=== PATIENT | male | born 1975 | race Caucasian/White ===

== ENCOUNTER 2018-05-31 16:32 | Outpatient (CLI) | payer MEDICARE, SELFPAY ==
[2018-05-31 18:21] LABS: ALT 46 U/L (12-78); AST 31 U/L (15-37); Alkaline Phosphatase 73 U/L (46-116); Anion Gap 10.3 mmol/L (3-11); BUN 23 mg/dL (7-18); Bilirubin, Total 0.5 mg/dL (0.2-1.0); CO2 26.7 mmol/L (21.0-32.0); CREATININE 1.07 mg/dL (0.70-1.30); Calcium 9.4 mg/dL (8.5-10.1); Chloride 102 mmol/L (98-107); Glucose 87 mg/dL (70-100); PHOSPHORUS 2.9 mg/dL (2.6-4.7); Potassium 4.2 mmol/L (3.5-5.1); Sodium 139 mmol/L (136-145); Total Protein 6.8 g/dL (6.4-8.2)
[2018-06-05 16:21] LABS: HIV-1 RNA Quantification Undetected copies/mL (UNDECT)
== END 2018-05-31 16:52 ==
PROVIDERS: PCP Internal Medicine Infectious Disease; Visit Provider Nurse Practitioner Family
DX: B20 Human immunodeficiency virus [HIV] disease (principal); Z79.899 Other long term (current) drug therapy
CPT/HCPCS: 36415; 80053; 87536; 84100

== ENCOUNTER 2018-06-05 12:00 | Outpatient (CLI) | payer MEDICARE, SELFPAY | END 2018-06-05 12:20 | PROVIDERS: PCP Internal Medicine Infectious Disease; Referring Provider Nurse Practitioner Family; Visit Provider Internal Medicine Infectious Disease | DX: B20 Human immunodeficiency virus [HIV] disease (principal); Z79.899 Other long term (current) drug therapy | CPT/HCPCS: 99215 ==

== ENCOUNTER 2018-09-25 19:28 | Emergency (ER) | payer MEDICARE, SELFPAY ==
[2018-09-25 19:34] VITALS: BP 137/79; PULSE 82; RESP 18; TEMP 37.4; O2SAT 95
--- NOTE | 2018-09-25 19:36 | DI.CT_ITS ---
SYMPTOMS/DIAGNOSIS: RIGHT LOWER QUADRANT PAIN, ? APPENDICITIS CT OF THE ABDOMEN AND PELVIS: Images were performed from the lung bases through the ischial tuberosities after IV and without oral contrast. The evaluation of the bowel is quite limited due to lack of intraabdominal fat and lack of oral contrast. The appendix appears normal. There is a moderate quantity of fecal material. Diverticulosis is seen in the sigmoid region. No definite evidence of diverticulitis. There are some mildly distended fluid-filled loops of bowel in the pelvis with a question of wall thickening, which could indicate enteritis. There is no free air or free fluid. The bladder and prostate are unremarkable. The lung bases are clear. The heart size is normal. The liver, gallbladder, spleen, pancreas, kidneys and adrenals are unremarkable. The aorta is normal in diameter. No bony abnormalities are seen. IMPRESSION: Limited exam. Mildly dilated small bowel could indicate enteritis.
--- NOTE | 2018-09-25 19:38 | W.ED.GENAD ---
Discharge Plan Disposition Patient Disposition: HOME Condition: Good Discharge Details Chief Complaint: Abd Prob Clinical Impression: Abdominal pain, Enteritis Primary Care Provider: Keyur Vincent ED Provider: Horace Peace Home Meds and New Rx's Prescriptions: No Action cyanocobalamin (vitamin B-12) [Vitamin B-12] 1,000 mcg Tablet 1,000 mcg PO DAILY RF: 0 steph extract 250 mg Capsule 250 mg PO DAILY RF: 0 cholecalciferol (vitamin D3) [Vitamin D3] 1,000 unit Tablet 2,000 unit PO DAILY RF: 0 multivit with min-folic acid 0.4 mg Tablet 1 tab PO DAILY RF: 0 Tivicay 50 mg Tablet 50 mg PO HS RF: 0 Descovy 200-25 mg Tablet 1 tab PO HS RF: 0 Ginseng Complex 150 mg-25 mg- 25 mg-15 mcg Capsule 2 cap PO DAILY RF: 0 turmeric 400 mg Capsule 1 tab PO DAILY RF: 0 Chaga Cordyceps drops 30 drp PO DAILY RF: 0 Lions Bashir drops 30 drp PO DAILY RF: 0 Discharge Instructions Instructions: Abdominal Pain (ED) Additional Instructions: Please take Tylenol and Motrin as needed for pain. Please drink plenty of water throughout the day to stay well-hydrated. Please pay close attention to your abdominal pain, if it continues, or worsens or you develop an associated fever, nausea, vomiting or diarrhea, please return immediately for reassessment. If you notice any worsening of your symptoms, or any new symptoms such as vomiting, diarrhea, fever, chills, shortness of breath, chest pain, numbness, weakness, or fainting , please return immediately to the emergency department for reevaluation. Please follow up with your primary care provider as soon as possible for reassessment and reevaluation. As always, it was a pleasure participating in your medical care today. Referrals: Keyur Vincent DO [Primary Care Provider] - Medical Decision Making This is a very pleasant 43-year-old male with a past medical history of being HIV positive, who presents today with right lower quadrant abdominal pain. Pain started earlier this morning, and is worsened throughout the day. He has not eaten anything since 10:30 AM. Symptoms are worse with heel strike, and palpation. He denies any urinary symptoms. Differential includes urolithiasis, UTI, or more likely appendicitis. We will get a CT scan for further evaluation out of the concern for appendicitis. 8:[address] scan results have returned there is no evidence of acute appendicitis, per the virtual radiology report pending's is normal in appearance. There is small amounts of minimal wall thickening for the small and large intestines, indicative of enteritis. No evidence of diverticulitis. On reevaluation and palpation of the patient's abdomen his pain has notably improved. Urinalysis is negative. White count is minimally elevated at 11.3, no bandemia, normal electrolytes and renal function. Lipase is normal. Had a long discussion with the patient and his family regarding observation, and the patient is feeling well, and feels good to go home. In addition to this, I do not think there is any indication for antibiotics at this time as the indurated seems to be generalized rather than focal to just a focal component of the colon. Weighing the risks and benefits, I do not think Cipro Flagyl would be appropriate for the patient at this time with his activity, and lifestyle. Although the CT scan is negative, and laboratory workup is benign I had a long discussion with the patient and family regarding red flags which to return, as appendicitis can sometimes present late. Patient and family members were at bedside are medically educated, and are aware of the reasons and physical exam findings for which to return. With reassuring vital signs, a benign appearing CT scan showing no evidence of acute surgical pathology, improving abdominal pain with Toradol, I feel he can be discharged home with very close follow-up. I have extensively reviewed the treatment plan and discharge instructions with the patient and their family. I have addressed all patient concerns at this time. The patient and family was made aware of what symptoms to monitor for that would warrant a return to the emergency department. Discussed the plan with the patient and family, they demonstrate verbal understanding and agreement with our assessment and plan at this time. FINDINGS: Lower thorax: No acute infiltrate in either lung base. ABDOMEN: Liver: Normal. No mass. Gallbladder and bile ducts: Normal. No calcified stones. No ductal dilation. Pancreas: Normal. No ductal dilation. Spleen: Normal. No splenomegaly. Adrenals: Normal. No mass. Kidneys and ureters: Normal. No hydronephrosis. Stomach and bowel: Moderate amount of stool in the majority of the colon. No generalized ileus or bowel obstruction. Multiple mildly distended, fluid-filled small bowel loops with minimal wall thickening within the lower pelvis suggesting an enteritis. Possible wall thickening of the mid / distal sigmoid colon as well as a portion of the proximal ascending colon which may indicate an associated colitis. Appendix: Normal appendix. PELVIS: Bladder: Normal unenhanced urinary bladder. No calcified stones within the bladder. Reproductive: Unremarkable as visualized. ABDOMEN and PELVIS: Intraperitoneal space: Normal. No free air. No significant fluid collection. Bones/joints: No acute fracture. No dislocation. Soft tissues: Unremarkable. Vasculature: Normal. No abdominal aortic aneurysm. Lymph nodes: Normal. No enlarged lymph nodes. IMPRESSION: 1. Normal appendix. 2. Moderate amount of stool in the majority of the colon. No generalized ileus or bowel obstruction. 3. Multiple mildly distended, fluid-filled small bowel loops with minimal wall thickening within the lower pelvis suggesting an enteritis. Possible wall thickening of the mid / distal sigmoid colon as well as a portion of the proximal ascending colon which may indicate an associated colitis. 4. Normal kidneys. Normal unenhanced urinary bladder. Thank you for allowing us to participate in the care of your patient. Dictated and Authenticated by: Anup Smith MD HPI General Date/Time Provider Initiated Documentation: 09/25/18 19:29. HPI Narrative: This is a 43-year-old male with a past medical history of being HIV positive, with undetectable viral loads for greater than 5 years, who presents today for evaluation of right lower quadrant abdominal pain. The patient states that earlier today he developed right lower quadrant abdominal pain. Throughout the day it is notably worsened. Whenever he jumped out of the car, or moved around he would feel it gets significantly worse. He has had nausea but no vomiting. He denies any diarrhea. Pain does not radiate anywhere else. It did start more so in the infraumbilical region, and now currently is from was located in the right lower quadrant. He denies any testicular pain, dysuria, hematuria, fever, chills, vomiting, diarrhea, chest pain or shortness of breath. He denies any previous abdominal surgeries. No other modifying factors. Last meal was at 10 AM. He denies any IV or illicit drug use, pertinent family history. Related Data Home Medications Medication Instructions Recorded Confirmed Chaga Cordyceps 30 drp PO DAILY 09/25/18 Lions Bashir 30 drp PO DAILY 09/25/18 Panjhoana, Tongan [id number] 2 cap PO DAILY 09/25/18 09/25/18 [Ginseng Complex] cholecalciferol (vitamin D3) 2,000 unit PO DAILY 09/25/18 09/25/18 [Vitamin D3] cyanocobalamin (vitamin B-12) 1,000 mcg PO DAILY 09/25/18 09/25/18 [Vitamin B-12] dolutegravir [Tivicay] 50 mg PO HS 09/25/18 09/25/18 emtricitabine-tenofovir alafen 1 tab PO HS 09/25/18 09/25/18 [Descovy] steph (Zingiber officinalis) 250 mg PO DAILY 09/25/18 09/25/18 [steph extract] multivit with min-folic acid 1 tab PO DAILY 09/25/18 09/25/18 turmeric 1 tab PO DAILY 09/25/18 09/25/18 Allergies Allergy/AdvReac Type Severity Reaction Status Date / Time gluten AdvReac Unverified 09/25/18 19:37 General Stated Complaint: Abd Prob JOSE MARTIN: 3 Review of Systems Review of Systems All systems reviewed & are unremarkable except as noted in HPI and below Exam Narrative Exam Narrative: 1.Const: Well-nourished, Well-developed, appearing stated age 2.Eyes: PERRL, no conjunctival injection, and symmetrical lids. 3.ENT: Atraumatic external nose and ears. Moist MM. Neck: Symmetric, trachea midline, No thyromegaly. 4.CVS: +S1/S2, No murmurs or gallops. Peripheral pulses 2+ and equal in all extremities. Brisk capillary refill in all extremities. 5.RESP: Unlabored respiratory effort. Clear to auscultation bilaterally. No wheezes rales or rhonchi 6.GI: Soft, bowel sounds present, tenderness notable in the right lower abdominal quadrant. Notable pain at McBurney's point, negative Farley sign. Negative obturator and psoas sign. Positive Rovsing sign. No significant flank or CVA tenderness. Positive heel strike test. 7.MSK: Normocephalic/Atraumatic, Extremities w/o deformity or ttp No cyanosis or clubbing, Normal movement of all extremities 8.Skin: Warm, Dry. No rashes or lesions. 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 Sensation grossly intact, no focal neurologic deficits. 10.Psych: (AAO) x3. Appropriate mood and affect Course Vital Signs Temperature 37.4 C 09/25/18 19:34 Pulse 82 09/25/18 19:34 Respiratory Rate 18 09/25/18 19:34 Blood Pressure 137/79 09/25/18 19:34 Pulse Oximetry 95 09/25/18 19:34 Temperature 37.4 C 09/25/18 19:34 Temperature Source Skin 09/25/18 19:34 Pulse 82 09/25/18 19:34 Respiratory Rate 18 09/25/18 19:34 Blood Pressure 137/79 09/25/18 19:34 Blood Pressure Position Sitting 09/25/18 19:34 Pulse Oximetry 95 09/25/18 19:34 Oxygen Delivery Method Room Air 09/25/18 19:34 Oxygen Flow Rate 0 09/25/18 19:34 Pain Level 3 09/25/18 19:34 Comment 09/25/18 19:34
[2018-09-25] MEDS: Ketorolac 30 MG/ML VIAL IVP (19:46)
[2018-09-25] MEDS: Normal Saline 1,000 ML 1000 ML IV (19:46)
[2018-09-25 19:47] VITALS: BP 140/82; RESP 18; O2SAT 96
[2018-09-25 19:49] LABS: Abs Immature Grans 0.03 k/cumm (0.0-0.09); Absolute Basophil Count 0.06 k/cumm (0.0-0.2); Absolute Eosinophil Count 0.14 k/cumm (0.0-0.7); Absolute Monocyte Count 0.92 k/cumm (0.11-0.7); Absolute Neutrophil Count 7.76 k/cumm (1.2-6.7); Basophils % 0.5; Eosinophils % 1.2; HCT 42.1 % (40.0-50.0); Immature Grans % 0.3; Lymphocytes % 21.2; Mean Corp. HGB Concentration 35.6 g/dL (32.0-36.0); Mean Corpuscular Hemoglobin 32.7 pg (27.0-33.0); Mean Corpuscular Volume 91.7 fL (80-95); Monocytes % 8.1; Neutrophils % 68.7; Platelet Count 244 x1000/uL (130-400); RBC 4.59 m/cumm (4.50-6.00); RBC Distribution Width 12.5 % (11.8-14.1)
[2018-09-25] MEDS: Omnipaque 350 MG/ML 100 ML BTL IJ (20:00)
[2018-09-25 20:14] LABS: ALT 64 U/L (12-78); AST 44 U/L (15-37); Albumin 4.2 g/dL (3.4-5.0); Alkaline Phosphatase 63 U/L (46-116); Anion Gap 10.1 mmol/L (3-11); BUN 11 mg/dL (7-18); Bilirubin, Total 0.6 mg/dL (0.2-1.0); CO2 26.9 mmol/L (21.0-32.0); CREATININE 0.85 mg/dL (0.70-1.30); Calcium 9.4 mg/dL (8.5-10.1); Chloride 100 mmol/L (98-107); Glucose 94 mg/dL (70-100); Lipase 107 U/L (73-393); Potassium 3.9 mmol/L (3.5-5.1); Sodium 137 mmol/L (136-145); Total Protein 7.5 g/dL (6.4-8.2)
[2018-09-25 20:24] LABS: Bilirubin Negative (Negative); Blood Negative (Negative); Clarity Clear; Glucose Negative (Negative); Ketones Negative (Negative); Leukocyte Esterase Negative (Negative); Nitrite Negative (Negative); Specific Gravity 1.015 (1.005-1.025); Urobilinogen 0.2 EU/dL (Up TO 0.2); pH 7.5 (5-8)
--- NOTE | 2018-09-25 20:25 | DI.VRAD_ITS ---
EXAM: CT Abdomen and Pelvis With Contrast EXAM DATE/TIME: 09/25/2018 7:38 PM CLINICAL HISTORY: 43 years old, male; Right lower quadrant (rlq) abd pain increasing throughout day. Denies any testicular pain, dysuria, hematuria, fever, chills, vomiting, diarrhea, chest pain, or shortness of breath. TECHNIQUE: Axial computed tomography images of the abdomen and pelvis with intravenous contrast. All CT scans at this facility use at least one of these dose optimization techniques: automated exposure control; mA and/or kV adjustment per patient size (includes targeted exams where dose is matched to clinical indication); or iterative reconstruction. Coronal and sagittal reformatted images were created and reviewed. CONTRAST: Contrast Material: 91 ml of Omnipaque 350; Contrast Route: IV RAC COMPARISON: No relevant prior studies available. FINDINGS: Lower thorax: No acute infiltrate in either lung base. ABDOMEN: Liver: Normal. No mass. Gallbladder and bile ducts: Normal. No calcified stones. No ductal dilation. Pancreas: Normal. No ductal dilation. Spleen: Normal. No splenomegaly. Adrenals: Normal. No mass. Kidneys and ureters: Normal. No hydronephrosis. Stomach and bowel: Moderate amount of stool in the majority of the colon. No generalized ileus or bowel obstruction. Multiple mildly distended, fluid-filled small bowel loops with minimal wall thickening within the lower pelvis suggesting an enteritis. Possible wall thickening of the mid / distal sigmoid colon as well as a portion of the proximal ascending colon which may indicate an associated colitis. Appendix: Normal appendix. PELVIS: Bladder: Normal unenhanced urinary bladder. No calcified stones within the bladder. Reproductive: Unremarkable as visualized. ABDOMEN and PELVIS: Intraperitoneal space: Normal. No free air. No significant fluid collection. Bones/joints: No acute fracture. No dislocation. Soft tissues: Unremarkable. Vasculature: Normal. No abdominal aortic aneurysm. Lymph nodes: Normal. No enlarged lymph nodes. IMPRESSION: 1. Normal appendix. 2. Moderate amount of stool in the majority of the colon. No generalized ileus or bowel obstruction. 3. Multiple mildly distended, fluid-filled small bowel loops with minimal wall thickening within the lower pelvis suggesting an enteritis. Possible wall thickening of the mid / distal sigmoid colon as well as a portion of the proximal ascending colon which may indicate an associated colitis. 4. Normal kidneys. Normal unenhanced urinary bladder. Dictated and Authenticated by: Anup Smith MD. Ordering:KENTON Vu MD
[2018-09-25 20:45] VITALS: BP 120/70; PULSE 67; RESP 16; TEMP 37; O2SAT 97
== END 2018-09-25 20:48 | disposition home or self-care (01) ==
PROVIDERS: Emergency Provider Student in an Organized Health Care Education/Training Program; PCP Internal Medicine Infectious Disease
DX: R10.31 Right lower quadrant pain (principal); K52.9 Noninfective gastroenteritis and colitis, unspecified; Z21 Asymptomatic human immunodeficiency virus [HIV] infection status
CPT/HCPCS: 36415; 80053; 83690; 96361; 96374; 99285; 74177; 81003; 85025; 99284; J1885; J3490

== ENCOUNTER 2018-12-06 16:37 | Outpatient (CLI) | payer MEDICARE, SELFPAY ==
[2018-12-06 17:18] LABS: Absolute Basophil Count 0.05 k/cumm (0.0-0.2); Absolute Eosinophil Count 0.11 k/cumm (0.0-0.7); Absolute Lymphocyte Count 2.13 k/cumm (1.2-3.4); Absolute Monocyte Count 0.42 k/cumm (0.11-0.7); Absolute Neutrophil Count 3.22 k/cumm (1.2-6.7); Basophils % 0.8; Eosinophils % 1.9; HCT 40.7 % (40.0-50.0); HGB 14.3 g/dL (13.5-17.5); Lymphocytes % 35.9; Mean Corp. HGB Concentration 35.1 g/dL (32.0-36.0); Mean Corpuscular Hemoglobin 32.6 pg (27.0-33.0); Mean Corpuscular Volume 92.9 fL (80-95); Mean Platelet Volume 9.1 fL (8.0-11.0); Monocytes % 7.1; Neutrophils % 54.3; Platelet Count 240 x1000/uL (130-400); RBC 4.38 m/cumm (4.50-6.00); RBC Distribution Width 12.7 % (11.8-14.1); White Blood Cell Count 5.93 k/cumm (4.4-10.8)
[2018-12-06 18:44] LABS: ALT 65 U/L (12-78); AST 43 U/L (15-37); Alkaline Phosphatase 53 U/L (46-116); Anion Gap 10.9 mmol/L (3-11); BUN 17 mg/dL (7-18); Bilirubin, Total 0.6 mg/dL (0.2-1.0); CO2 24.1 mmol/L (21.0-32.0); CREATININE 0.79 mg/dL (0.70-1.30); Chloride 103 mmol/L (98-107); Cholesterol 208 mg/dL (50-200); Glucose 87 mg/dL (70-100); HDL Cholesterol 56 mg/dL (40-60); LDL CHOLESTEROL 138 mg/dL (<100); Sodium 138 mmol/L (136-145); Total Protein 6.7 g/dL (6.4-8.2); Triglyceride 35 mg/dL (30-150)
[2018-12-08 10:35] LABS: CD3 85 % (62-87); CD4 34 % (35-63); CD8 50 % (10-35)
[2018-12-11 15:37] LABS: HIV-1 RNA Quantification Undetected copies/mL (UNDECT)
== END 2018-12-06 16:57 ==
PROVIDERS: PCP Internal Medicine Infectious Disease; Visit Provider Internal Medicine Infectious Disease
DX: B20 Human immunodeficiency virus [HIV] disease (principal); Z79.899 Other long term (current) drug therapy
CPT/HCPCS: 36415; 80053; 80061; 83721; 87536; 85025; 86359; 86360

== ENCOUNTER 2018-12-11 13:27 | Outpatient (CLI) | payer MEDICARE, SELFPAY | END 2018-12-11 13:47 | PROVIDERS: PCP Internal Medicine Infectious Disease; Referring Provider Nurse Practitioner Family; Visit Provider Internal Medicine Infectious Disease | DX: B20 Human immunodeficiency virus [HIV] disease (principal); Z23 Encounter for immunization; Z79.899 Other long term (current) drug therapy | CPT/HCPCS: 90471; 90734; 99215 ==

== ENCOUNTER 2018-12-11 16:22 | Outpatient (REF) | payer MEDICARE, SELFPAY ==
--- NOTE | 2018-12-11 13:30 | PAPFT_PTH ---
PATIENT: Dante Armstrong LOC: [facility] U#:[id number] AGE/SX: 43/M ROOM: RE12/11/[address]: Geno Zhu : 1975 BED: DIS: 12/11/2018 SPEC #: [id number] RECD: 12/12/18 12:57 STATUS: JACQUELINE REQ #: [id number] RUFUS: 12/11/18 13:[address]: Keyur Vincent DEPT: [facility] Cytology RECD BY: Ada Chatman Tissues: 1 - CX/ENDOCX FOR PAP SMEARS Procedures: PAP THIN PREP/UVM Screening Comments: [id number]
== END 2018-12-11 16:42 ==
LOC: LBN 16:22
PROVIDERS: PCP Nurse Practitioner Family; Visit Provider Nurse Practitioner Family
DX: B20 Human immunodeficiency virus [HIV] disease (principal); Z79.899 Other long term (current) drug therapy; Z87.898 Personal history of other specified conditions
CPT/HCPCS: 88142

== ENCOUNTER 2019-06-13 16:48 | Outpatient (CLI) | payer MEDICARE, SELFPAY ==
[2019-06-13 17:36] LABS: Abs Immature Grans 0.01 k/cumm (0.0-0.09); Absolute Basophil Count 0.07 k/cumm (0.0-0.2); Absolute Eosinophil Count 0.11 k/cumm (0.0-0.7); Absolute Monocyte Count 0.47 k/cumm (0.11-0.7); Absolute Neutrophil Count 2.87 k/cumm (1.2-6.7); Basophils % 1.2; Eosinophils % 1.9; HCT 45.7 % (40.0-50.0); HGB 16.1 g/dL (13.5-17.5); Immature Grans % 0.2; Lymphocytes % 40.5; Mean Corp. HGB Concentration 35.2 g/dL (32.0-36.0); Mean Corpuscular Hemoglobin 32.4 pg (27.0-33.0); Mean Platelet Volume 8.7 fL (8.0-11.0); Monocytes % 7.9; Neutrophils % 48.3; Platelet Count 258 x1000/uL (130-400); RBC 4.97 m/cumm (4.50-6.00); White Blood Cell Count 5.93 k/cumm (4.4-10.8)
[2019-06-13 18:21] LABS: ALT 68 U/L (16-63); AST 42 U/L (15-37); Albumin 4.2 g/dL (3.4-5.0); Alkaline Phosphatase 54 U/L (46-116); Anion Gap 8.8 mmol/L (3-11); BUN 13 mg/dL (7-18); Bilirubin, Total 0.3 mg/dL (0.2-1.0); CO2 28.2 mmol/L (21.0-32.0); CREATININE 0.93 mg/dL (0.70-1.30); Calcium 9.3 mg/dL (8.5-10.1); Calculated LDL 128 mg/dL; Chloride 104 mmol/L (98-107); Cholesterol 192 mg/dL (<200); Glucose 75 mg/dL (74-106); HDL Cholesterol 53 mg/dL (40-60); Potassium 4.5 mmol/L (3.5-5.1); Sodium 141 mmol/L (136-145); Total Protein 7.2 g/dL (6.4-8.2); Triglyceride 58 mg/dL (<150)
[2019-06-16 16:26] LABS: CD3 85 % (62-87); CD4 35 % (35-63); CD8 49 % (10-35)
[2019-06-18 14:36] LABS: HIV-1 RNA Quantification 0 copies/mL (Undetected)
== END 2019-06-13 17:08 ==
PROVIDERS: PCP Nurse Practitioner Family; Visit Provider Internal Medicine Infectious Disease
DX: B20 Human immunodeficiency virus [HIV] disease (principal); Z79.899 Other long term (current) drug therapy
CPT/HCPCS: 36415; 80053; 80061; 87536; 85025; 86359; 86360

== ENCOUNTER 2019-06-18 15:40 | Outpatient (CLI) | payer MEDICARE, SELFPAY | END 2019-06-18 16:00 | PROVIDERS: PCP Nurse Practitioner Family; Referring Provider Nurse Practitioner Family; Visit Provider Internal Medicine Infectious Disease | DX: B20 Human immunodeficiency virus [HIV] disease (principal); Z79.899 Other long term (current) drug therapy | CPT/HCPCS: 99215 ==

== ENCOUNTER 2019-07-27 11:02 | Outpatient (CLI) | payer MEDICARE, SELFPAY ==
--- NOTE | 2019-07-27 11:04 | W.CCNOTE ---
Date of service: 07/27/19 Time of Service: 11:04 Comprehensive Care Clinic Note Note: [facility] [address] [place] [address] [facility] Follow Up Visit Name: Dante Armstrong Date of : 1975 Date of Service: 07/27/2019 SUBJECTIVE: ?I?ve been feeling good and didn?t have any side effects from the immunizations in May.? Had flu vaccine, 32 Menactra and a double dose Hepatitis B vaccine as he never mounted immunity w the regular 3 injection series. He has been well and is taking all the medications as RXd and has not missed a dose. ROS: Denies fever, chills, night sweats, or recent URI or GI symptoms. Weight and appetite is stable ? 10 point review negative. Has not had any rash Update Past Medical/Surgical/Psychiatric History: Nothing new. 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 He developed a severe pain in his left lower back that went into his leg but never saw a rash. He describes having shaking chills and when that would happen the pain intensified. He has had nothing like it since. He takes Lysine and since starting that has not had any Herpes 2 viral outbreaks. Allergies/Sensitivities: Bactrim causes thrombocytopenia and anemia ? perhaps stinson anemia. Current Medications: Descovey (emtricitabine-tenofovir alafen 200-25mg), Tivicay (dolutegravir 50mg), Multiple Supplements includin-hydroxytrytophan, acetylcystine, B-Complex, Calcium/D3/Mag/Zinc, Cod Liver Oil & fish oil, Lysine, Milk Thistle, Multivit, Ginseng, Tumeric. Social History: Lives in his own home with his dogs and has goats and chickens. 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 ppd ? contemplating quiting Update Family History: No new health issues in his family Immunization History: Tetanus (DPT/dT/dTp/TDAP) ? had in 2016 Flu Vaccine: gets yearly and had in 05/2019 Pneumovax: #1, #2; - Had both, Prevnar 13 #1 ? had in 2015 Other: Menactra #1- 11/2018, #2- 05/2019 OBJECTIVE Temp: 97.9, Pulse: 74, Resp: 14, BP: 122/70 General: AINAD, AAOx4, appearing well Skin: free of rash, W&D Eyes: non icteric Cardiac: RRR No MCRG Chest/Lungs: Clear Abdomen: NABS, NT, ND, no OGM Extremities: no edema Neuro: gait strong and steady, no tremor Psych: normal affect, euthymic mood Lab work on 06/13/2019 ? absolute CD4 843, CD4% 35, VL <20 (undetectable) ASSESSMENT: HIV+ stable on last lab work and taking the ART without missing doses or ASEs. No immunity to HBV w regular series of 3 inj of HBV vaccine - Immunizations today for #2 in high dose Hepatitis B vaccine PLAN: no change in medications. High dose Hepatitis B vaccine administered in the RG today. Call if develops fever, chills, pain /redness at the site or other mehran/skin lesions MD visit scheduled: will be due on Nov, 2019 Lab Work: to be done a few weeks before MD visit Provider of Care: Geno Zhu NP Signature: Date:
== END 2019-07-27 11:22 ==
PROVIDERS: PCP Nurse Practitioner Family; Visit Provider Nurse Practitioner Family
DX: B20 Human immunodeficiency virus [HIV] disease (principal); Z79.899 Other long term (current) drug therapy; Z23 Encounter for immunization
CPT/HCPCS: 90471; 99214; 90746

== ENCOUNTER 2019-11-07 15:58 | Outpatient (CLI) | payer MEDICARE, SELFPAY ==
--- NOTE | 2019-11-07 16:02 | CCCE_ITS ---
Date of service: 11/07/19 Time of Service: 16:03 [facility] Care Clinic Note Note: Phone tele-health contact with Arpan for a check in and follow up for his HIV disease. He states that he has not worked since 10/05/2019 and is awaiting an unemployment check but so far is ok for food and essentials. He is hoping to get some small building jobs after the Covid19 pandemic slows down. He states that he feels well now but in mid September he picked up two woman who were hitch-hicking on a cold day in [place]. He admits he did shake their hands after he dropped them off to where they were going but neither had any sign of illness. A few days later he developed a dry cough, aching and fatigue but no fever. After a few days all the symptoms began to resolve but he can't help but wonder if he had the Covid19. He asks if he will be able to have an antibody test when a reliable one is available. He has refills of his Tivicay 50mg tabs and Descovy 200-25 mg tabs until mid January. He will call if he has any trouble refilling these. There is not an anticipated shortage of these medications but he is to ask the pharmacist if they hear of any. He will let me know if this becomes an issue. I will check in with him in about a month and he is to call should he start with any S&S of illness in the mean time. Geno Zhu NP
== END 2019-11-07 16:18 ==
PROVIDERS: PCP Nurse Practitioner Family; Visit Provider Nurse Practitioner Family
DX: B20 Human immunodeficiency virus [HIV] disease (principal)
CPT/HCPCS: 99024; 99213

== ENCOUNTER 2021-04-27 11:30 | Outpatient (CLI) | payer MEDICARE, SELFPAY ==
--- NOTE | 2021-04-27 15:24 | CCCE_ITS ---
Date of service: 04/27/21 Time of Service: 11:30 Comprehensive Care Clinic Note Note: [facility] [address] [place] [address] [facility] Visit for Medical Follow Up Name: Dante Armstrong Medical Record [id number] Date of : 1975 Primary Care Provider: Geno Zhu Date of Service: 04/27/2021 SUBJECTIVE CC/HPI: Arpan is here for an influenza vaccine injection and a general check in. he had a Zoom follow up Tele-Health visit with Dr. Vincent although apparently the quality of the audio was poor due to the location where Arpan was parked in [place] in his truck during the internet connection. He says he is feeling well and has not had any febrile illnesses. He is not Covid vaccinated and is not planning to get the vaccine any time soon but is willing to have the influenza vaccine today and in 8 weeks come back for the second Pneumovax as his first and the only one on record was in 2013. He did not have the flu vaccine last year due to not wanting to go into any health care facilities while Covid was still on the increase from the summer of 2019. He did not mount an immune response to the initial 3 doses of Hep B vaccine and did have the high dose Hep B vaccine administered in May again w/o detectable immunity response and a second dose of double dose Hep B vaccine in July of 2019 but has not had any blood work done since that time due to Covid! ROS Constitutional: Good energy, appetite, sleep. Weight is stable. Skin: Denies rash Ear/Nose/Throat: Negative CV: Denies chest pain, pressure, palpitations Respiratory: Some smokers cough in the morning, denies dyspnea, hemoptysis GI: No N/V/D/C or rectal bleeding : Negative Lymphatic: Has not noted any enlarged nodes Hematologic: No unusual bleeding, bruising Psychiatric: Denies Anxiety, Depression, SI/HI Allergies/Sensitivities: NKDA Current Medications: Tivicay 50mg a day Descovy 200-25 mgs one a day Multiple supplements Medical / Surgical History Update: Had an evaluation earlier in the year for abdominal pain that he thought was appendicitis but it turned out to be non- surgical Psychiatric History Update: Non sig Social History Update: Working doing carpentry work and self-employed. Health Insurance: Medicare, No longer has Medicaid due to his being able to work some now that he is on a more modern regimen of HIV medications and having no side effects Substance Use: Tobacco: about 1 ppd ETOH: rare Drug Use: MJ sometimes Family History Update: Nothing new Immunization Needed? Due for Influenza today and Pneumovax in 8 weeks Health Maintenance: UTD with other vaccines but refusing the Covid vaccine OBJECTIVE Height: Weight: 144# Temp: 96.7, Pulse: 72, Respirations: 14, Blood Pressure: 110/74 General: AINAD, Gait strong and steady Skin: W/D no rash Eyes: non-icteric Psychiatric: - eye contact: good - speech: normal - affect: appropriate - mood: euthymic - memory: short term intact, intermediate manager intact ASSESSMENT/PLAN HIV/HM: To get blood work today for recheck of CBCD, CMP, CD4, VL, HBV sAb since these were last done 2 years ago due to Covid deterring him from going to the lab. He has an appointment at the [facility] lab today at 2:30pm and will keep this appointment. No change in his medications at this time. He received the influenza vaccine today and it was entered into the [facility] Immunization Registry. MD visit scheduled: 6 months and it may be better for him to come into clinic here to have the appointment. Lab work ordered: As outlined above under A/P Provider of Care: Geno Zhu, MSN, EMERGENCY VETERINARIAN
== END 2021-04-27 11:31 | disposition home or self-care (01) ==
LOC: CCC 15:23
PROVIDERS: PCP Nurse Practitioner Family; Visit Provider Nurse Practitioner Family
DX: B20 Human immunodeficiency virus [HIV] disease (principal); Z79.899 Other long term (current) drug therapy
CPT/HCPCS: 36415; 80053; 86706; 87536; 99213; 85025; 86359; 86360

== ENCOUNTER 2021-04-27 17:47 | Outpatient (CLI) | payer MEDICARE, SELFPAY ==
[2021-04-27 15:15] LABS: Abs Immature Grans 0.02 10^3/uL (0.0-0.06); Absolute Basophil Count 0.09 10^3/uL (0.0-0.2); Absolute Eosinophil Count 0.21 10^3/uL (0.0-0.7); Absolute Lymphocyte Count 2.41 10^3/uL (1.2-3.4); Absolute Monocyte Count 0.58 10^3/uL (0.1-0.8); Eosinophils % 2.3; HCT 42.8 % (40.0-50.0); HGB 14.7 g/dL (13.5-17.5); Immature Grans % 0.2; Lymphocytes % 26.7; MCH 32.5 pg (27.0-33.0); MCHC 34.3 % (32.0-36.0); MCV 94.5 fL (80-95); MPV 9.2 fL (8.0-11.0); Monocytes % 6.4; Neutrophils % 63.4; Nucleated RBC 0 %; Platelet Count 252 10^3/uL (130-400); RBC 4.53 10^6/uL (4.36-5.78); RDW-SD 42.2 fL; WBC 9.01 10^3/uL (4.4-10.8)
[2021-04-27 16:13] LABS: ALT 44 U/L (16-63); AST 32 U/L (15-37); Albumin 3.8 g/dL (3.4-5.0); Alkaline Phosphatase 53 U/L (46-116); Anion Gap 8.8 mmol/L (3-11); BUN 18 mg/dL (7-18); Bilirubin, Total 0.4 mg/dL (0.2-1.0); CO2 28.2 mmol/L (21.0-32.0); Chloride 105 mmol/L (98-107); Glucose 88 mg/dL (74-106); Potassium 4.7 mmol/L (3.5-5.1); Sodium 142 mmol/L (136-145); Total Protein 6.6 g/dL (6.4-8.2)
[2021-04-29 10:17] LABS: HBs Antibody, Quant 3.8 mIU/mL (See Note); Hepatitis B Surface Ab Negative (See Note)
[2021-04-29 14:16] LABS: 4/8 Ratio 0.63 (>=0.90); Absolute CD3 2023 Cells/uL (840-2,669); Absolute CD8 1225 Cells/uL (154-1,097); CD3 82 % (56-84); CD4 31 % (31-64); CD8 50 % (9-39)
[2021-04-30 15:43] LABS: HIV 1 RNA Qualitative Undetected copies/mL (Undetected)
== END 2021-04-27 17:48 | disposition home or self-care (01) ==
LOC: LBO 17:51
PROVIDERS: PCP Nurse Practitioner Family; Visit Provider Nurse Practitioner Family
DX: B20 Human immunodeficiency virus [HIV] disease (principal); Z79.899 Other long term (current) drug therapy
CPT/HCPCS: 36415; 80053; 86706; 87536; 85025; 86359; 86360

== ENCOUNTER 2022-06-15 03:12 | Outpatient (CLI) | payer SELFPAY ==
[2022-06-15 13:45] LABS: Abs Immature Grans 0.01 10^3/uL (0.0-0.06); Absolute Basophil Count 0.06 10^3/uL (0.0-0.2); Absolute Eosinophil Count 0.16 10^3/uL (0.0-0.7); Absolute Lymphocyte Count 2.01 10^3/uL (1.2-3.4); Absolute Monocyte Count 0.42 10^3/uL (0.1-0.8); Absolute Neutrophil Count 4.91 10^3/uL (1.2-6.7); Basophils % 0.8; Eosinophils % 2.1; HCT 42.5 % (40.0-50.0); HGB 14.9 g/dL (13.5-17.5); Immature Grans % 0.1; Lymphocytes % 26.6; MCH 32.7 pg (27.0-33.0); MCHC 35.1 % (32.0-36.0); MCV 93 fL (80-95); MPV 8.6 fL (8.0-11.0); Monocytes % 5.5; Neutrophils % 64.9; Platelet Count 258 10^3/uL (130-400); RBC 4.56 10^6/uL (4.36-5.78); RDW 11.9 % (11.8-14.1); RDW-SD 41.4 fL; WBC 7.57 10^3/uL (4.4-10.8)
[2022-06-15 14:11] LABS: ALT 51 U/L (16-63); AST 42 U/L (15-37); Albumin 3.9 g/dL (3.4-5.0); Alkaline Phosphatase 57 U/L (46-116); Anion Gap 8.9 mmol/L (3-11); BUN 18 mg/dL (7-18); Bilirubin, Total 0.6 mg/dL (0.2-1.0); CO2 26.1 mmol/L (21.0-32.0); CREATININE 1.2 mg/dL (0.70-1.30); Calcium 9.5 mg/dL (8.5-10.1); Chloride 101 mmol/L (98-107); Estimated GFR 75.06 (mL/min/1.73m2); Glucose 104 mg/dL (74-106); Potassium 4.2 mmol/L (3.5-5.1); Sodium 136 mmol/L (136-145); Total Protein 7.1 g/dL (6.4-8.2)
[2022-06-21 09:28] LABS: Absolute CD3 1844 Cells/uL (840-2669); Absolute CD8 1128 Cells/uL (154-1097); CD3 83 % (56-84); CD4 30 % (31-64); CD8 51 % (9-39)
== END 2022-06-15 03:13 | disposition home or self-care (01) ==
LOC: LBO 03:13
PROVIDERS: PCP Nurse Practitioner Family; Visit Provider Internal Medicine Infectious Disease
DX: B20 Human immunodeficiency virus [HIV] disease (principal); Z79.899 Other long term (current) drug therapy
CPT/HCPCS: 36415; 80053; 86701; 86702; 87389; 85025; 86359; 86360

== ENCOUNTER 2022-11-26 01:35 | Outpatient (CLI) | payer SELFPAY ==
[2022-11-29 12:27] LABS: HIV 1 RNA Qualitative Undetected copies/mL (Undetected)
== END 2022-11-26 01:36 | disposition home or self-care (01) ==
LOC: LBO 01:35
PROVIDERS: PCP Nurse Practitioner Family; Visit Provider Internal Medicine Infectious Disease
DX: B20 Human immunodeficiency virus [HIV] disease (principal); Z79.899 Other long term (current) drug therapy
CPT/HCPCS: 87536

== ENCOUNTER 2025-05-19 16:07 | Emergency (ER) | payer SELFPAY ==
[2025-05-19] VITALS (8 sets, daily range): BP systolic 138; BP diastolic 86; PULSE 69–81; RESP 20; TEMP 36.3; O2SAT 88–100
--- NOTE | 2025-05-19 16:15 | RT.EKG_ITS ---
APPROVED REPORT Exam: Resting ECG Reason for Exam: SOB Patient Location: E HR:76 bpm ECG Measurements Heart Rate 76 AXIS IN 126 P 81 QRSd 85 QRS 67 QT 385 T 77 QTc 433 Conclusion Sinus rhythm, rate 76 No interval abnormalities No STEMI No priors available for comparison
--- NOTE | 2025-05-19 16:30 | DI.RAD_ITS ---
Exam(s) XR CHEST 2V PA LATERAL EXAM: XR CHEST 2V PA LATERAL CLINICAL HISTORY: SOB TECHNIQUE: 2D digital imaging was performed of the chest. Two images were obtained. PA and lateral views were obtained. COMPARISON: No exams were available for comparison FINDINGS: MEDIASTINUM: Normal. HEART: Normal. PULMONARY VASCULATURE: Normal. LUNGS: The lungs are hyperinflated. There are no focal consolidating infiltrates. PLEURAL SPACE: No pleural effusion or pneumothorax. BONE:Within normal limits for the patient's age. OTHER FINDINGS:Normal. IMPRESSION: 1. Inflation of the lungs which can be seen with COPD or reactive airways disease. 2. There are no focal consolidating infiltrates. 3. The preliminary [facility] report was reviewed. DATA REPOSITORY: RADIATION DOSE DELIVERED:
[2025-05-19 17:07] LABS: BE (Venous) 4 mmol/L (-2-3); HCO3 (Venous) 29 mmol/L (23-28); O2 Sat (Venous) 66 %; TCO2 (Venous) 26 mmol/L (24-29); pCO2 (Venous) 49 mmHg (41-51); pO2 (Venous) 34 mmHg
[2025-05-19 17:08] LABS: Abs Immature Grans 0.02 10^3/uL (0.0-0.06); HCT 45.0 % (40.0-50.0); HGB 15.8 g/dL (13.5-17.5); Immature Grans % 0.3 %; MCH 32.1 pg (27.0-33.0); MCHC 35.1 % (32.0-36.0); MCV 92 fL (80-95); MPV 8.4 fL (8.0-11.0); Platelet Count 235 10^3/uL (130-400); RBC 4.92 10^6/uL (4.36-5.78); RDW 11.6 % (11.8-14.1); RDW-SD 39.1 fL; WBC 6.84 10^3/uL (4.4-10.8)
[2025-05-19] MEDS: methylPREDNISolone SUCC 125 MG VIAL IVP (17:17)
[2025-05-19] MEDS: Albuterol/Ipratropium 3 ML UPD VIAL UPD ×2 (17:17→17:55)
--- NOTE | 2025-05-19 17:21 | DI.VRAD_ITS ---
PROCEDURE INFORMATION: Exam: XR Chest Exam date and time: 05/19/2025 5:11 PM Age: 49 years old Clinical indication: Shortness of breath TECHNIQUE: Imaging protocol: Radiologic exam of the chest. Views: 2 views. COMPARISON: CT ABDOMEN PELVIS W 09/25/2018 7:50 PM FINDINGS: Lungs: The lungs are hyperaerated and hyperlucent. No acute infiltrates. Pleural spaces: Unremarkable. No pleural effusion. No pneumothorax. Heart/Mediastinum: Unremarkable. No cardiomegaly. Bones/joints: Unremarkable. IMPRESSION: Reactive airway disease versus COPD. Clinical correlation requested. Dictated and Authenticated by: Kay Eden MD. Orderin St. Richi Rojas MD
[2025-05-19 17:26] LABS: COVID-19 PCR Negative (Negative); RSV PCR Negative (Negative)
[2025-05-19 17:26] LABS: Glucose Negative (Negative)
[2025-05-19 17:32] LABS: ALT 46 U/L (16-63); AST 60 U/L (15-37); Albumin 3.8 g/dL (3.4-5.0); Alkaline Phosphatase 82 U/L (46-116); Anion Gap 6.8 mmol/L (3-11); BUN 8 mg/dL (7-18); Bilirubin, Total 0.5 mg/dL (0.2-1.0); CO2 30.2 mmol/L (21.0-32.0); Calcium 9.1 mg/dL (8.5-10.1); Chloride 99 mmol/L (98-107); Estimated GFR 107.82 (mL/min/1.73m2); Glucose 90 mg/dL (74-106); Magnesium 1.7 mg/dL (1.8-2.4); NT-proBNP 141 pg/mL (<300); Potassium 4.3 mmol/L (3.5-5.1); Sodium 136 mmol/L (136-145); Total Protein 7.4 g/dL (6.4-8.2); Troponin I 8 ng/L (<or=76)
--- NOTE | 2025-05-19 17:40 | W.ED.GENAD ---
Discharge Plan Disposition Patient Disposition: Home Condition: Stable Discharge Details Clinical Impression: COPD exacerbation, Acute bronchitis Primary Care Provider: Geno Zhu ED Provider: Crystal Musa Home Meds and New Rx's Prescriptions: New azithromycin 250 mg tablet 250 mg PO DAILY 4 Days Qty: 4 0RF Rx Instructions: start on day 2 of therapy (05/20/2025) prednisone 20 mg tablet 40 mg PO DAILY 4 Days Qty: 8 0RF Rx Instructions: Start taking 05/20/2025 No Action cyanocobalamin (vitamin B-12) [Vitamin B-12] 1,000 mcg Tablet 1,000 mcg PO DAILY steph extract 250 mg Capsule 250 mg PO DAILY cholecalciferol (vitamin D3) [Vitamin D3] 1,000 unit Tablet 2,000 unit PO DAILY multivit with min-folic acid 0.4 mg Tablet 1 tab PO DAILY Tivicay 50 mg Tablet 50 mg PO HS Descovy 200-25 mg Tablet 1 tab PO HS turmeric 400 mg Capsule 1 tab PO DAILY Chaga Cordyceps drops 30 drp PO DAILY Lions Bashir drops 30 drp PO DAILY Discharge Instructions Instructions: COPD Exacerbation, Adult ED Additional Instructions: You were seen in the emergency department today for evaluation of shortness of breath, cough, and sputum production. In our department you had a full physical examination performed, received medications for your wheezing including a breathing treatment, steroid, and your first dose of antibiotics. Your chest x-ray did not show any sign of pneumonia but I am concerned for a COPD exacerbation and bronchitis. I sent a prescription for the remainder of your course of steroids and antibiotics to your pharmacy. Your magnesium was very slightly low and this was repleted in the emergency department. I have sent you home with an inhaler, which you should use as needed every 4 hours for shortness of breath. I have referred you to establish with a primary care physician to discuss this visit and any symptoms that change, worsen, or persist. Please follow-up with your primary care provider in the next few days to discuss this visit and any symptoms that change, worsen, or persist. Thank you for allowing us to be part of your care. HPI General Mode of arrival: ambulatory. Date/Time Provider Initiated Documentation: 05/19/25 16:32. Limitations to Documentation: no limitations. Information obtained by: patient and old records reviewed. HPI Narrative: This is a 49-year-old male patient with a past medical history significant for HIV on antiretroviral therapy, presenting for evaluation of shortness of breath and cough. The patient reports that he started to have worsening breathing 3 nights ago, initially had a dry cough but then had a night where he did experience fever and cough productive of white sputum. He reports that his breathing is significantly worsened today, he feels like he has to lean forward to get air, and was noted to be mildly hypoxic in the triage box at 88%. The patient reports that he does smoke cigarettes, has not been formally diagnosed with any reactive airway disease such as COPD, but reports that he does not regularly go to a physician. He denies chest pain, states that he does not have any history of heart problems and has not noted any calf swelling or tenderness. Has had some recent sick contacts, has not gotten any COVID or flu vaccines yet this year. Related Data Home Medications ?Medication ?Instructions ?Recorded ?Confirmed Chaga Cordyceps 30 drp PO DAILY 09/25/18 05/19/25 Lions Bashir 30 drp PO DAILY 09/25/18 05/19/25 cholecalciferol (vitamin D3) 25 2,000 unit PO DAILY 09/25/18 05/19/25 mcg (1,000 unit) tablet (Vitamin D3) cyanocobalamin (vitamin B-12) 1,000 mcg PO DAILY 09/25/18 05/19/25 1,000 mcg tablet (Vitamin B-12) dolutegravir 50 mg tablet (Tivicay) 50 mg PO HS 09/25/18 05/19/25 emtricitabine 200 mg-tenofovir 1 tab PO HS 09/25/18 05/19/25 alafenamide fumarate 25 mg tablet (Descovy) steph (Zingiber officinalis) 250 250 mg PO DAILY 09/25/18 05/19/25 mg capsule (steph extract) multivitamin with minerals-folic 1 tab PO DAILY 09/25/18 05/19/25 acid 0.4 mg tablet turmeric 400 mg capsule 1 tab PO DAILY 09/25/18 05/19/25 azithromycin 250 mg tablet 250 mg PO DAILY 4 days #4 tabs 05/19/25 prednisone 20 mg tablet 40 mg (2 x 20 mg) PO DAILY 4 days 05/19/25 #8 tabs Previous Rx's ?Medication ?Instructions ?Recorded azithromycin 250 mg tablet 250 mg PO DAILY 4 days #4 tabs 05/19/25 prednisone 20 mg tablet 40 mg (2 x 20 mg) PO DAILY 4 days 05/19/25 #8 tabs Allergies Allergy/AdvReac Type Severity Reaction Status Date / Time sulfamethoxazole (From Allergy Severe Thrombocytopenia, Verified 05/19/25 17:46 Bactrim) stinson anemia trimethoprim (From Bactrim) Allergy Severe Thrombocytopenia, Verified 05/19/25 17:46 stinson anemia gluten AdvReac Anaphylaxis Unverified 05/19/25 17:46 General Stated Complaint: SOB JOSE MARTIN: 3 Exam Narrative Exam Narrative: Gen: Awake and alert, in no apparent distress HEENT: Non-icteric sclera Neck: Supple Lungs: Appears short of breath, sitting in the tripod position. Diffuse expiratory and inspiratory wheezes appreciated throughout CV: Appears well perfused, heart with regular rate and rhythm. Strong distal pulses Abdomen: Non-distended MSK: Moves 4 extremities without apparent limitation in ROM. No peripheral edema, no unilateral calf swelling or tenderness. Skin: Visualized skin without rashes, cyanosis. Neuro: Normal Gait, no obvious focal deficits or facial asymmetry. Speaks in full, clear sentences. Psych: Appropriate for situation. Course Vital Signs Vital signs: Vital Signs Temperature 36.3 C L 05/19/25 16:16 Pulse 74 05/19/25 16:16 Respiratory Rate 20 05/19/25 16:16 Blood Pressure 138/86 05/19/25 16:16 Pulse Oximetry 88 L 05/19/25 16:16 Temperature 36.3 C L 05/19/25 17:05 Pulse 74 05/19/25 17:05 Respiratory Rate 20 05/19/25 17:05 Respiratory Effort Short of Breath 05/19/25 17:05 Respiratory Depth Normal 05/19/25 17:05 Respiratory Pattern Normal 05/19/25 17:05 Blood Pressure 138/86 05/19/25 17:05 Pulse Oximetry 88 L 05/19/25 17:05 Oxygen Delivery Method Room Air 05/19/25 17:05 Oxygen Flow Rate 0 05/19/25 17:05 Pain Level 0 05/19/25 17:05 Lab/Test Results Lab/Test Results: Laboratory Tests Range/Units 05/19/25 05/19/25 05/19/25 16:42 17:00 17:13 WBC (4.4-10.8) 10^3/uL 6.84 RBC (4.36-5.78) 10^6/uL 4.92 Hgb (13.5-17.5) g/dL 15.8 Hct (40.0-50.0) % 45.0 MCV (80-95) fL 92 MCH (27.0-33.0) pg 32.1 MCHC (32.0-36.0) % 35.1 RDW (11.8-14.1) % 11.6 L Plt Count (130-400) 10^3/uL 235 MPV (8.0-11.0) fL 8.4 Immature Gran % % 0.3 Neutrophils % % 67.0 Lymphocytes % % 20.8 Monocytes % % 8.8 Eosinophils % % 2.2 Basophils % % 0.9 Nucleated RBC % (0.0-0.3) % 0.0 Absolute Neutrophils (1.2-6.7) 10^3/uL 4.59 Absolute Lymphocytes (1.2-3.4) 10^3/uL 1.42 Absolute Monocytes (0.1-0.8) 10^3/uL 0.60 Absolute Eosinophils (0.0-0.7) 10^3/uL 0.15 Absolute Basophils (0.0-0.2) 10^3/uL 0.06 VBG pH (7.31-7.41) 7.38 VBG pCO2 (41-51) mmHg 49 VBG pO2 mmHg 34 VBG HCO3 (23-28) mmol/L 29 H VBG Total CO2 (24-29) mmol/L 26 VBG O2 Saturation % 66 VBG Base Excess (-2-3) mmol/L 4 H Sodium (136-145) mmol/L 136 Potassium (3.5-5.1) mmol/L 4.3 Chloride (98-107) mmol/L 99 Carbon Dioxide (21.0-32.0) mmol/L 30.2 Anion Gap (3-11) mmol/L 6.8 BUN (7-18) mg/dL 8 Creatinine (0.70-1.30) mg/dL 0.8 Est GFR (CKD-EPI 2020) (mL/min/1.73m2) 107.82 Glucose (74-106) mg/dL 90 Calcium (8.5-10.1) mg/dL 9.1 Magnesium (1.8-2.4) mg/dL 1.7 L Total Bilirubin (0.2-1.0) mg/dL 0.5 AST (15-37) U/L 60 H ALT (16-63) U/L 46 Alkaline Phosphatase (46-116) U/L 82 Troponin I (<or=76) ng/L 8 NT-Pro-B Natriuret Pep (<300) pg/mL 141 Total Protein (6.4-8.2) g/dL 7.4 Albumin (3.4-5.0) g/dL 3.8 Urine Color (Yellow) Yellow Urine Clarity (Clear) Clear Urine pH (5-8) 7.0 Ur Specific [place] (1.005-1.025) 1.015 Urine Protein (Neg-Trace) mg/dL Negative Urine Ketones (Negative) mg/dL Negative Urine Blood (Negative) Negative Urine Nitrite (Negative) Negative Urine Bilirubin (Negative) Negative Urine Urobilinogen (Up to 0.2) mg/dL 0.2 Ur Leukocyte Esterase (Negative) Negative Urine Glucose (Negative) mg/dL Negative COVID-19 Source Nasopharynx SARS-CoV-2 (PCR) (Negative) Negative Influenza Type A (PCR) (Negative) Negative Influenza Type B (PCR) (Negative) Negative RSV (PCR) (Negative) Negative Medical Decision Making This is a 49-year-old male patient presenting for evaluation of shortness of breath, cough, and fever. Differential includes but is not limited to viral URI, pneumonia, bronchitis, reactive airway disease exacerbation. I considered pulmonary edema and pleural effusions the patient has no evidence of fluid overload on physical examination. Exam less concerning for pneumothorax. No chest pain to suggest ACS. Considered hypercarbic respiratory failure. Symptoms are less concerning for pulmonary embolism in this patient without DVT symptoms, thromboembolic history, and with a very clear wheezing picture. The patient is compliant with his antiretroviral therapy and I have a low concern for sequelae of untreated HIV at this time. We will obtain labs to include CBC, CMP, magnesium, troponin, VBG, BNP, and Fluvid. Obtained a urinalysis, and we will obtain a chest x-ray. Will provide the patient with a duo nebulizer treatment and Solu-Medrol. - I independently interpreted the laboratory studies, which show no significant leukocytosis, anemia, or thrombocytopenia. The chemistry panel is without evidence of electrolyte abnormality, kidney dysfunction, or liver injury. VBG without acidosis or hypercarbia. Troponin is negative and without interval increase in 1 hour delta recheck, BNP is low. Urinalysis was noninfectious. Fluvid negative. The magnesium was on the low side of normal, and on reassessment the patient had continued wheezing, and a dose of 2g magnesium was given IV. I also gave the patient a second duo nebulizer treatment and his first dose of azithromycin. The patient had significant improvement in both his wheezing and his symptoms of shortness of breath after these treatments. Chest x-ray shows hyperinflation, consistent with COPD/reactive airway disease. I am most concerned for reactive airway disease exacerbation and the sputum changes concerning for potential bronchitis. I will provide the patient with the remainder of a course of azithromycin and a prednisone burst. An albuterol inhaler with spacer was provided to him in the emergency department. He also received a referral to establish with a primary care provider. At this time, the patient has had a full medical evaluation and is safe for discharge to home. They are hemodynamically stable, ambulatory, and tolerating PO. They are understanding of the follow-up plan and return precautions. They left our facility without incident. Crystal Musa MD [facility] All Active Problems (Updated 05/19/25 @ 18:39 by Crystal Musa MD) Acute bronchitis (Acute) COPD exacerbation (Acute) HIV (human immunodeficiency virus infection) (Acute) Medical History (Updated 05/19/25 @ 18:39 by Crystal Musa MD) Mycobacterium avium complex Mantoux: positive Depression HSV (herpes simplex virus) anogenital infection Latent tuberculosis Anal dysplasia Social History Smoking risk assessment performed?: No Alcohol Intake: never Drug use: Daily Substance use type: marijuana Do you feel safe in your relationship?: Yes
[2025-05-19] MEDS: Azithromycin 250 MG TAB 500 MG PO (17:46)
[2025-05-19] MEDS: MAGNESIUM SULFATE 2 GM/50 ML BAG IV_INF (18:00)
[2025-05-19 18:18] LABS: Troponin I 7 ng/L (<or=76)
[2025-05-19] MEDS: Albuterol HFA 8 GM 60 PUFF INH IH (18:43)
== END 2025-05-19 18:55 | disposition home or self-care (01) ==
PROVIDERS: Emergency Provider Emergency Medicine; PCP Nurse Practitioner Family
DX: J44.1 Chronic obstructive pulmonary disease with (acute) exacerbation (principal); J44.0 Chronic obstructive pulmonary disease with (acute) lower respiratory infection; J20.9 Acute bronchitis, unspecified; B20 Human immunodeficiency virus [HIV] disease; F17.210 Nicotine dependence, cigarettes, uncomplicated
CPT/HCPCS: 80053; 82805; 87637; 93005; 94640; 96374; 96375; 99284; 71046; 81003; 83735; 83880; 84484; 85025; 93010; J2919; J3475; J7620